=== PATIENT | male | born 1985 ===

== ENCOUNTER 2017-02-27 06:08 | Emergency (ER) | payer OTHER ==
[2017-02-27 06:21] VITALS: BP 135/79; PULSE 64; RESP 17; TEMP 98.2; O2SAT 99
--- NOTE | 2017-02-27 07:07 | ED PDOC ---
HPI: Back Time Seen by Provider: 02/27/17 06:43 Chief Complaint (Nursing): Back Pain Chief Complaint (Provider): Left lower back pain History Per: Patient History/Exam Limitations: no limitations Onset/Duration Of Symptoms: Days Current Symptoms Are (Timing): Still Present Quality Of Discomfort: "Pain" Severity: Moderate Previous Symptoms: None Associated Symptoms: None Additional Complaint(s): The pt is a 32yo male with no pertinent PMHx, presents to the ED for evaluation of left lower back pain for the past couple days. Pt reports the pain as non- radiating and constant. He denies any fever, vommiting, dysuria or hematuria. Pt reports he took Advil with some relief. 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 Currently in ED, pt denies any pain and offers no additional medical complaints. Past Medical History Reviewed: Historical Data, Nursing Documentation, Vital Signs Vital Signs: Last Vital Signs Temp 98.2 F 02/27/17 06:17 Pulse 64 02/27/17 06:17 Resp 17 02/27/17 06:17 BP 135/79 02/27/17 06:17 Pulse Ox 99 02/27/17 06:17 - Medical History PMH: No Chronic Diseases - Surgical History Surgical History: No Surg Hx - Family History Family History: States: No Known Family Hx - Home Medications Home Medications: Ambulatory Orders Medication Instructions Recorded Cyclobenzaprine [Flexeril] 5 mg PO Q8 PRN #15 tab 02/27/17 Naproxen 500 mg PO BID #20 tab 02/27/17 - Allergies Allergies/Adverse Reactions: Allergies Allergy/AdvReac Type Severity Reaction Status Date / Time No Known Allergies Allergy Verified 02/27/17 06:17 Review of Systems ROS Statement: Except As Marked, All Systems Reviewed And Found Negative Constitutional: Negative for: Fever Gastrointestinal: Negative for: Vomiting Genitourinary Male: Negative for: Dysuria, Hematuria Musculoskeletal: Positive for: Back Pain Physical Exam - Reviewed Nursing Documentation Reviewed: Yes Vital Signs Reviewed: Yes - Physical Exam Appears: Positive for: Well, Non-toxic, No Acute Distress Head Exam: Positive for: ATRAUMATIC, NORMAL INSPECTION, NORMOCEPHALIC Skin: Positive for: Normal Color Eye Exam: Positive for: Normal appearance Neck: Positive for: Normal Cardiovascular/Chest: Positive for: Regular Rate, Rhythm Respiratory: Positive for: Normal Breath Sounds. Negative for: Respiratory Distress Gastrointestinal/Abdominal: Positive for: Soft. Negative for: Tenderness Back: Positive for: Other (mild left paraspinal tenderness). Negative for: L CVA Tenderness Neurologic/Psych: Positive for: Alert, Oriented - ECG O2 Sat by Pulse Oximetry: 99 (RA) Pulse Ox Interpretation: Normal Medical Decision Making Medical Decision Making: Time: 624 Impression: Musculoskeletal pain less likely kidney stone Plan: -- UDip -- Flexeril -- Toradol --Reassess Time: 07 Udip came back negative for kidney stones. pt stable for discharge home. Final Dx: Back pain Scribe Attestation: Documented by Nikki Burton acting as a scribe for Luis Le MD. Provider Attestation: All medical record entries made by the Scribe were at my direction and personally dictated by me. I have reviewed the chart and agree that the record accurately reflects my personal performance of the history, physical exam, medical decision making, and the department course for this patient. I have also personally directed, reviewed, and agree with the discharge instructions and disposition. Disposition - Clinical Impression Clinical Impression: Back pain - Patient ED Disposition Is Patient to be Admitted: No - Disposition Referrals: [facility] [Outside] Disposition: Routine/Home Disposition Time: 07:00 Condition: GOOD Additional Instructions: Return for worsening. Follow up with your PCP in 2-3 days. Prescriptions: Cyclobenzaprine [Flexeril] 5 mg PO Q8 PRN #15 tab PRN Reason: Muscle Spasm Naproxen 500 mg PO BID #20 tab Instructions: Back Pain (ED) Forms: [facility] ED School/Work Excuse Print Language: INDONESIAN
== END 2017-02-27 07:12 | disposition home or self-care (01) ==
LOC: H.ER 06:08
DX: M54.5 Low back pain (principal)

== ENCOUNTER 2018-04-05 18:42 | Emergency (ER) | payer OTHER ==
[2018-04-05 19:10] VITALS: RESP 18
[2018-04-05] MEDS ORDERED: Iohexol 240 (50 ml) PO ONE (19:28)
[2018-04-05] MEDS ORDERED: Sodium Chloride 0.9% 1,000 ML IV STA (19:29)
--- NOTE | 2018-04-05 19:32 | ED PDOC ---
HPI: Abdomen Time Seen by Provider: 04/05/18 19:30 Chief Complaint (Nursing): Abdominal Pain Chief Complaint (Provider): ABD PAIN History Per: Patient (33 Y/O MALE HERE WITH PERIUMBILICAL PAIN TODAY. PATIENT STATES HE HAS HAD SIMILAR PAIN INTERMITTENTLY X 1 MONTH. HE HAS AN APPT WITH [facility] IT HAS AND IS PENDING APPT 04/22/2018. DENIES ANY FEVERS/ CHILLS/DIARRHEA/VOMITING/ NO PRIOR SURGERIES.) Past Medical History Reviewed: Historical Data, Nursing Documentation, Vital Signs Vital Signs: Last Vital Signs Temp 98.1 F 04/05/18 19:07 Pulse 67 04/05/18 19:07 Resp 18 04/05/18 19:07 BP 132/83 04/05/18 19:07 Pulse Ox 98 04/05/18 19:07 - Family History Family History: States: No Known Family Hx - Home Medications Home Medications: Ambulatory Orders Medication Instructions Recorded Cyclobenzaprine [Flexeril] 5 mg PO Q8 PRN #15 tab 02/27/17 Naproxen 500 mg PO BID #20 tab 02/27/17 - Allergies Allergies/Adverse Reactions: Allergies Allergy/AdvReac Type Severity Reaction Status Date / Time No Known Allergies Allergy Verified 02/27/17 06:17 Review of Systems ROS Statement: Except As Marked, All Systems Reviewed And Found Negative Physical Exam - Reviewed Nursing Documentation Reviewed: Yes Vital Signs Reviewed: Yes - Physical Exam Appears: Positive for: Well, Non-toxic, No Acute Distress Head Exam: Positive for: ATRAUMATIC, NORMAL INSPECTION, NORMOCEPHALIC Skin: Positive for: Normal Color, Warm, DRY Eye Exam: Positive for: EOMI, Normal appearance, PERRL ENT: Positive for: Normal ENT Inspection Neck: Positive for: Normal, Painless ROM Cardiovascular/Chest: Positive for: Regular Rate, Rhythm Respiratory: Positive for: CNT, Normal Breath Sounds Gastrointestinal/Abdominal: Positive for: Normal Exam, Soft, Tenderness ( UMBILICAL TENDERNESS. ACTIVE BOWEL SOUNDS. ) Back: Positive for: Normal Inspection Extremity: Positive for: Normal ROM Neurologic/Psych: Positive for: Alert, Oriented - ECG O2 Sat by Pulse Oximetry: 98 - Progress ED Course And Treament: NS 1 LITER 500 ML PER HOUR PREPPED FOR CT ABD/PELVIS TO EVALUATE FOR INCARCERATED HERNIA. Disposition - Clinical Impression Clinical Impression: Abdominal pain - Patient ED Disposition Is Patient to be Admitted: Transfer of Care - Disposition Disposition: Transfer of Care Disposition Time: 20:00 Condition: FAIR Patient Signed Over To: Amy Tavares Handoff Comments: PENDING CT ABD/PELVIS R/O OBSTRUCTION
[2018-04-05] MEDS ORDERED: Iohexol 240 (50 ml) ONE (20:07)
[2018-04-05 20:22] LABS: BASO # 0.1 K/uL (0.0-0.2); EOS # 0.2 K/uL (0.0-0.7); EOS % 1.8 % (0.0-4.0); HEMOGLOBIN 15.4 g/dL (12.0-18.0); LYMPH # 2.1 K/uL (1.0-4.3); LYMPH % 19.1 % (20.0-40.0); MEAN CELL VOLUME 94.6 fl (80.0-94.0); MEAN CORPUSCULAR HEMOGLOBIN 33.9 pg (27.0-31.0); MEAN CORPUSCULAR HGB CONC 35.8 g/dL (33.0-37.0); MEAN PLATELET VOLUME 9.1 fl (7.2-11.7); MONO # 0.9 K/uL (0.0-0.8); MONO % 7.9 % (0.0-10.0); NEUT # 7.7 K/uL (1.8-7.0); NEUT % 70.2 % (50.0-75.0); RBC 4.54 Mil/uL (4.40-5.90); RED CELL DISTRIBUTION WIDTH 12.5 % (11.5-14.5); WHITE BLOOD COUNT 10.9 K/uL (4.8-10.8)
[2018-04-05 20:31] LABS: ALB/GLOB RATIO 1.2 (1.0-2.1); ALBUMIN 4.4 g/dL (3.5-5.0); ALT/SGPT 98 U/L (21-72); AST/SGOT 50 U/L (17-59); BLOOD UREA NITROGEN 16 mg/dl (9-20); CALCIUM 9.2 mg/dL (8.4-10.2); GFR AFRICAN-AMERICAN > 60; GFR NON-AFRICAN AMERICAN > 60; LIPASE 35 U/L (23-300)
[2018-04-05 20:35] LABS: URINE BILIRUBIN NEGATIVE (NEGATIVE); URINE BLOOD NEGATIVE (NEGATIVE); URINE CLARITY SLIGHTY-CLOUDY (Clear); URINE COLOR YELLOW (YELLOW); URINE GLUCOSE (UA) NEG (Normal); URINE LEUKOCYTE ESTERASE NEG Leu/uL (Negative); URINE PROTEIN NEGATIVE (NEGATIVE)
[2018-04-05] MEDS ORDERED: Sodium Chloride 0.9% 50 ML IV ONE (21:52)
[2018-04-05] MEDS ORDERED: Iohexol 300 100 ML IJ ONE (21:52)
--- NOTE | 2018-04-05 23:24 | ED PDOC ---
- Laboratory Results Result Diagrams: 04/05/18 20:16 04/05/18 20:16 - ECG O2 Sat by Pulse Oximetry: 98 - Progress ED Course And Treament: Case endorsed to marketing underwriter from [facility] pending labs, CT EXAM: CT Abdomen and Pelvis With Intravenous Contrast EXAM DATE/TIME: 04/05/2018 7:28 PM CLINICAL HISTORY: 33 years old, male; Pain; Abdominal pain; Epigastric; Additional info: R/O incarcerated hernia TECHNIQUE: Axial computed tomography images of the abdomen and pelvis with intravenous contrast. All CT scans at this facility use one or more dose reduction techniques, viz.: automated exposure control; ma/kV adjustment per patient size (including targeted exams where dose is matched to indication; i.e. head); or iterative reconstruction technique. CONTRAST: 95 ml of Omnipaque administered intravenously. COMPARISON: No relevant prior studies available. FINDINGS: Lower thorax: Minimal bibasilar infiltrates or atelectasis. ABDOMEN: Liver: There is fatty infiltration of the liver. Gallbladder and bile ducts: Normal. No calcified stones. No ductal dilation. Pancreas: Normal. No ductal dilation. Spleen: Normal. No splenomegaly. Adrenals: Normal. No mass. Kidneys and ureters: Normal. No hydronephrosis. Stomach and bowel: Normal. No obstruction. No mucosal thickening. Appendix: A normal appendix is seen. PELVIS: Bladder: Unremarkable as visualized. Reproductive: Unremarkable as visualized. ABDOMEN and PELVIS: Intraperitoneal space: Normal. No free air. No significant fluid collection. Bones/joints: Unfused ring apophysis at the anterosuperior aspect of L3. Degenerative disc changes of the lumbar spine. Soft tissues: Small fat filled periumbilical hernia with slight induration of the internal fat. Vasculature: Normal. No abdominal aortic aneurysm. Lymph nodes: Normal. No enlarged lymph nodes. IMPRESSION: 1. Small fat filled periumbilical hernia with slight induration of some of the internal fat. 2. Minimal bibasilar infiltrates or atelectasis. 3. Fatty infiltration of the liver. 4. Otherwise CT abdomen/pelvis. Patient educated on findings, discharged with instructions to follow up PMD/ Surgery. Advised Tylenol/Ibuprofen PRN pain Return precautions given Disposition - Clinical Impression Clinical Impression: Periumbilical hernia, Abdominal pain - POA Present On Arrival: None - Disposition Referrals: [facility] [Outside] Brandon Dent MD [Staff Provider] - Disposition: Routine/Home Disposition Time: 23:23 Condition: IMPROVED Instructions: Acute Abdomen (Belly Pain), Abdominal Hernia (DC) Forms: [employer] (Armenian)
[2018-04-06 00:11] VITALS: BP 127/81; PULSE 68; TEMP 89.4; O2SAT 100
--- NOTE | 2018-04-06 09:57 | CT ---
PROCEDURE: CT Abdomen and Pelvis with contrast HISTORY: R/O INCARCERATED HERNIA COMPARISON: None. TECHNIQUE: Following the intravenous administration of iodinated contrast material, a CT examination of the abdomen and pelvis performed from the domes of the diaphragms to the symphysis pubis with reformatted datasets provided not only axial but also sagittal and coronal planes. Oral contrast was not administered as per referring physician request. Contrast dose: Omnipaque 300, 95 cc Radiation dose: Total exam DLP = 1516.99 mGy-cm. This CT exam was performed using one or more of the following dose reduction techniques: Automated exposure control, adjustment of the mA and/or kV according to patient size, and/or use of iterative reconstruction technique. FINDINGS: LOWER THORAX: Small hiatal hernia is encountered. LIVER: Diminished hepatic attenuation is appreciate diffusely, compatible with hepatic steatosis with liver otherwise appears unremarkable. GALLBLADDER AND BILE DUCTS: Unremarkable. PANCREAS: Unremarkable. No gross lesion or ductal dilatation. SPLEEN: Unremarkable. ADRENALS: Unremarkable. No mass. KIDNEYS AND URETERS: Unremarkable. No hydronephrosis. No solid mass. VASCULATURE: Unremarkable. No aortic aneurysm. BOWEL: Unremarkable. No obstruction. No gross mural thickening. APPENDIX: Normal appendix. PERITONEUM: A small umbilical hernia is identified containing only fat with no reactive changes associated at this time. No bowel involvement. The bilateral inguinal anatomy appear unremarkable. No hernia related. LYMPH NODES: Unremarkable. No enlarged lymph nodes. BLADDER: Unremarkable. REPRODUCTIVE: Unremarkable. BONES: No acute fracture. OTHER FINDINGS: None. IMPRESSION: New acute abdominal or pelvic findings. A small umbilical hernia contains only mesenteric fat and no bowel. No a small hiatal hernia is appreciated and there are no inguinal hernias bilaterally. Hepatic steatosis. Concordant preliminary report from [facility], 04/05/2018.
== END 2018-04-06 00:11 | disposition home or self-care (01) ==
LOC: H.ER 18:42
DX: K42.9 Umbilical hernia without obstruction or gangrene (principal); K76.0 Fatty (change of) liver, not elsewhere classified
CPT/HCPCS: 74177; 80053; 81003; 83690; 85025; 99283; J7030; Q9966; Q9967